=== PATIENT | male | born 2000 | race Caucasian/White ===

== ENCOUNTER 2024-07-06 19:00 | Emergency (ER) | payer OTHER ==
[~2024-07-06] VITALS: Ht 185.4 cm; Wt 81.8 kg
[2024-07-06 19:33] VITALS: BP 134/79; PULSE 56; TEMP 98.2
== END 2024-07-06 19:33 | disposition home or self-care (01) ==
LOC: COL.ER 19:00
DX: S63.256A Unspecified dislocation of right little finger, initial encounter (principal); W21.05XA Struck by basketball, initial encounter; Y93.67 Activity, basketball